=== PATIENT | female | born 1995 | race American Indian/Alaskan Native ===

== ENCOUNTER 2016-05-30 20:44 | Outpatient (CLI) | payer MEDICAID ==
[2016-05-30] MEDS ORDERED: LACTATED RINGERS 1,000 ML ONE (20:49)
[2016-05-30 20:57] VITALS: BP 125/64
[2016-05-30] MEDS ORDERED: LACTATED RINGERS 1,000 ML IV ONE (21:15)
[2016-05-30 21:41] LABS: Bilirubin,Urine NEG (Negative); Blood,Urine NEG (Negative); Ketones,Urine TR mg/dL (Negative); Leukocyte Esterase,Urine NEG (Negative); Mucus,Urine 2+ /HPF; Nitrite,Urine NEG (Negative)
== END 2016-05-30 22:02 | disposition home or self-care (01) ==
LOC: TRG 20:44
PROVIDERS: ATTEND Obstetrics & Gynecology
DX: O47.03 False labor before 37 completed weeks of gestation, third trimester (principal); Z3A.30 30 weeks gestation of pregnancy
CPT/HCPCS: 81001; 96360; J7120